=== PATIENT | male | born 1970 | race Caucasian/White ===

== ENCOUNTER → 2017-07-07 | Outpatient (CLI) | payer MEDICARE, OTHER ==
[~2017-07-07] MED LIST: CARV3.1212 PO; CELE50CA PO; DIAZ5TAB PO; LISI-167 PO; OMEP-110 PO; OXYC-302 PO; OXYC5CAP2 PO; OXYC5TAB2 PO; TRAM50TA2 PO; ZOLP-413 PO
== END | disposition home or self-care (01) ==
LOC: CFH 07:05
PROVIDERS: ATTEND Internal Medicine Cardiovascular Disease
DX: I35.8 Other nonrheumatic aortic valve disorders (principal); I37.1 Nonrheumatic pulmonary valve insufficiency; I42.0 Dilated cardiomyopathy; I51.7 Cardiomegaly; I72.8 Aneurysm of other specified arteries
CPT/HCPCS: 93306

== ENCOUNTER → 2017-11-30 | Outpatient (CLI) | payer OTHER ==
[~2017-11-30] MED LIST changes: +AMOX-291 PO; +CA C1CAP PO; +LISI2.5T PO; +MULT-658 PO; +MV-M1TAB16 PO; +OMEG-76 PO; +TRAZ150T62 PO
== END ==
LOC: STAR 15:45
PROVIDERS: ATTEND Orthopaedic Surgery Orthopaedic Surgery of the Spine
DX: Z01.818 Encounter for other preprocedural examination (principal); R00.1 Bradycardia, unspecified
CPT/HCPCS: 36415; 71046; 80053; 85025; 85610; 85651; 85730; 93005

== ENCOUNTER 2017-12-09 06:13 | Inpatient (IN) | payer OTHER ==
[2017-11-30 16:53] LABS: INTERNATIONAL NORMALIZED RATIO 1.01 (0.93-1.1); PROTHROMBIN TIME 10.5 Seconds (9.6-11.5)
[2017-11-30 16:54] LABS: BASOPHILS # (AUTO) 0.03 x10^3/uL (0-0.1); BASOPHILS % (AUTO) 1 % (0-1); EOSINOPHILS # (AUTO) 0.29 x10^3/uL (0-0.4); EOSINOPHILS % (AUTO) 7 % (1-7); LYMPHOCYTES # (AUTO) 1.62 x10^3/uL (1-3.4); LYMPHOCYTES % (AUTO) 36 % (22-44); MD NO; MEAN CORPUSCULAR HEMOGLOBIN 32.4 pg (27.5-34.5); MEAN CORPUSCULAR HGB CONC 34.6 g/dL (33.2-36.2); MEAN CORPUSCULAR VOLUME 93.7 fL (81-97); MONOCYTES # (AUTO) 0.34 x10^3/uL (0.2-0.8); MONOCYTES % (AUTO) 8 % (2-9); NEUTROPHILS % (AUTO) 49 % (42-75); PLATELET COUNT 162 x10^3/uL (130-400); RED BLOOD COUNT 4.71 x10^6/uL (4.38-5.82); RED CELL DISTRIBUTION WIDTH 12.7 % (9.4-14.8)
[2017-11-30 16:56] LABS: HCT (SEDRATE) 44.1 % (39.2-51.8)
[2017-11-30 16:58] LABS: ALANINE AMINOTRANSFERASE 22 U/L (12-78); ALBUMIN 3.9 g/dL (3.4-5.0); ANION GAP 9 mmol/L (5-15); CALCIUM 8.4 mg/dL (8.5-10.1); CHLORIDE 104 mmol/L (98-107); CREATININE 1.18 mg/dL (0.7-1.3)
[2017-11-30 17:00] LABS: ALKALINE PHOSPHATASE 57 U/L (45-117); BILIRUBIN,TOTAL 0.4 mg/dL (0.2-1.0); TOTAL PROTEIN 7.1 g/dL (6.4-8.2)
[~2017-12-09] VITALS: Ht 185.4 cm; Wt 92.4 kg
[2017-12-09] MEDS ORDERED: LACTATED RINGERS 1,000 ML IV SCH (07:14)
[2017-12-09] MEDS ORDERED: MIDAZOLAM 1 MG/ML, 2ML ONE (10:18)
[2017-12-09] MEDS ORDERED: FENTANYL PF 250 MCG/5ML ONE (10:18)
[2017-12-09] MEDS ORDERED: PROPOFOL 10 MG/ML, 20ML ONE (10:19)
[2017-12-09] MEDS ORDERED: ROCURONIUM 10 MG/ML,10ML ONE (10:19)
[2017-12-09] MEDS ORDERED: NEOSTIGMINE 1 MG/ML, 10ML ONE (10:20)
[2017-12-09] MEDS ORDERED: GLYCOPYRROLATE 0.4 MG/2 ML, 2ML ONE (10:20)
[2017-12-09] MEDS ORDERED: CEFAZOLIN 1,000 MG ONE ×2 (10:21)
[2017-12-09] MEDS ORDERED: SODIUM CHLORIDE 0.9% PF 10ML ONE (10:21)
[2017-12-09] MEDS ORDERED: BUPIVACAINE/PF 0.5% ONE (10:36)
[2017-12-09] MEDS ORDERED: EPINEPHRINE 1 MG/ML, 1ML ONE (10:36)
[2017-12-09] MEDS ORDERED: OXYcodone 5 MG/5 ML ORAL.SOL UDC PO PRN (11:00)
[2017-12-09] MEDS ORDERED: LABETALOL 5MG/ML, 20ML IV PRN (11:00)
[2017-12-09] MEDS ORDERED: FENTANYL PF 100 MCG/2ML IV PRN (11:00)
[2017-12-09] MEDS ORDERED: PROMETHAZINE 12.5 MG SUPP PR PRN (11:00)
[2017-12-09] MEDS ORDERED: ONDANSETRON 2MG/ML, 2ML IVPush PRN (11:00)
[2017-12-09] MEDS ORDERED: hydrALAzine 20 MG/ML, 1ML IV PRN (11:00)
[2017-12-09] MEDS ORDERED: ACETAMINOPHEN 325 MG TABLET PO PRN (11:00)
[2017-12-09] MEDS ORDERED: MEPERIDINE/PF 25MG/0.5ML IVPush PRN (11:00)
[2017-12-09] MEDS ORDERED: HYDROmorphone 2 MG/ML, 1ML ONE ×2 (12:10→12:26)
[2017-12-09] MEDS: HYDROmorphone 1 MG/ML, 1ML IV PRN ×6 (12:11→13:15)
[2017-12-09] MEDS ORDERED: ACETAMINOPHEN 650 MG/20.3 ML UDC ONE (12:26)
[2017-12-09] MEDS ORDERED: OXYcodone 5 MG/5 ML ORAL.SOL UDC ONE (12:27)
[2017-12-09] MEDS ORDERED: LORazepam 2 MG/ML, 1ML ONE (12:35)
[2017-12-09] MEDS ORDERED: LORazepam 2 MG/ML, 1ML IVPush PRN (13:00)
[2017-12-09 13:45] VITALS: BP 121/66
[2017-12-09 14:06] LABS: BASOPHILS # (AUTO) 0.02 x10^3/uL (0-0.1); BASOPHILS % (AUTO) 0 % (0-1); EOSINOPHILS # (AUTO) 0.17 x10^3/uL (0-0.4); EOSINOPHILS % (AUTO) 3 % (1-7); LYMPHOCYTES # (AUTO) 1.92 x10^3/uL (1-3.4); LYMPHOCYTES % (AUTO) 32 % (22-44); MD NO; MEAN CORPUSCULAR HEMOGLOBIN 32.5 pg (27.5-34.5); MEAN CORPUSCULAR HGB CONC 34.7 g/dL (33.2-36.2); MEAN CORPUSCULAR VOLUME 93.7 fL (81-97); MONOCYTES # (AUTO) 0.32 x10^3/uL (0.2-0.8); MONOCYTES % (AUTO) 5 % (2-9); NEUTROPHILS # (AUTO) 3.59 x10^3/uL (1.8-6.8); NEUTROPHILS % (AUTO) 60 % (42-75); PLATELET COUNT 146 x10^3/uL (130-400); RED BLOOD COUNT 4.76 x10^6/uL (4.38-5.82); RED CELL DISTRIBUTION WIDTH 12.6 % (9.4-14.8)
[2017-12-09] MEDS: LABETALOL 5MG/ML, 20ML IVPush SCH ×2 (14:21→22:16)
[2017-12-09] MEDS: POTASSIUM CHLORIDE 20 MEQ in D5%-0.45% NACL 1,000 ML IV SCH (14:28)
[2017-12-09] MEDS ORDERED: DIAZEPAM 5 MG TABLET PO PRN (14:30)
[2017-12-09] MEDS ORDERED: ACETAMINOPHEN 500 MG TABLET PO PRN (14:30)
[2017-12-09] MEDS ORDERED: DEXAMETHASONE 4 MG/ML, 1ML IV PRN (14:30)
[2017-12-09] MEDS ORDERED: SENNA/DOCUSATE TABLET PO PRN (14:30)
[2017-12-09] MEDS ORDERED: SODIUM CHLORIDE 0.9% 1,000ML IVBOLUS PRN (14:30)
[2017-12-09] MEDS ORDERED: LORazepam 2 MG/ML, 1ML IV PRN (14:30)
[2017-12-09] MEDS ORDERED: LORazepam 1MG TABLET PO PRN (14:30)
[2017-12-09] MEDS ORDERED: ONDANSETRON 2MG/ML, 2ML IV PRN (14:30)
[2017-12-09] MEDS ORDERED: KETOROLAC 30 MG/1 ML IM PRN (14:30)
[2017-12-09] MEDS ORDERED: OXYcodone ORAL.CONC 20 MG/ML PO PRN (14:30)
[2017-12-09] MEDS ORDERED: morphine SULFATE 10 MG/ML, 1ML IV PRN (14:30)
[2017-12-09] MEDS ORDERED: PROMETHAZINE 25 MG/ML, 1ML IM PRN (14:30)
[2017-12-09] MEDS ORDERED: ALUMINUM/MAG/SIMETHICONE 30 ML UDC PO PRN (14:30)
[2017-12-09] MEDS ORDERED: BISACODYL 10 MG SUPP PR PRN (14:30)
[2017-12-09] MEDS ORDERED: CARVEDILOL 6.25 MG TABLET ONE (17:45)
[2017-12-09 17:50] VITALS: BP 116/67
[2017-12-09] MEDS: CARVEDILOL 12.5 MG TABLET PO SCH (17:51)
[2017-12-09] MEDS ORDERED: CEFAZOLIN PMX 2GM/100ML 100 ML IVPB SCH (20:00)
[2017-12-09] MEDS: DOCUSATE 100 MG CAPSULE PO SCH (20:14)
[2017-12-09 20:15] VITALS: BP 129/84
[2017-12-09] MEDS ORDERED: ZOLPIDEM 5MG TABLET PO PRN (21:00)
[2017-12-09] MEDS: OXYcodone IR 5MG TABLET PO PRN (22:24)
[2017-12-10] MEDS: POTASSIUM CHLORIDE 20 MEQ in D5%-0.45% NACL 1,000 ML IV SCH ×3 (00:34→20:15)
[2017-12-10] MEDS: DIPHENHYDRAMINE 25 MG CAPSULE PO PRN (00:36)
[2017-12-10 00:38] VITALS: BP 114/85
[2017-12-10] MEDS ORDERED: CEFAZOLIN PMX 2GM/50ML 50 ML IVPB SCH (04:00)
[2017-12-10 04:30] VITALS: BP 102/64
[2017-12-10] MEDS: LABETALOL 5MG/ML, 20ML IVPush SCH ×3 (05:38→21:58)
[2017-12-10] MEDS ORDERED: CARVEDILOL 6.25 MG TABLET ONE (05:39)
[2017-12-10 05:41] LABS: BASOPHILS # (AUTO) 0.02 x10^3/uL (0-0.1); BASOPHILS % (AUTO) 0 % (0-1); EOSINOPHILS # (AUTO) 0.25 x10^3/uL (0-0.4); EOSINOPHILS % (AUTO) 4 % (1-7); LYMPHOCYTES # (AUTO) 1.36 x10^3/uL (1-3.4); LYMPHOCYTES % (AUTO) 24 % (22-44); MD NO; MEAN CORPUSCULAR HEMOGLOBIN 32.2 pg (27.5-34.5); MEAN CORPUSCULAR HGB CONC 34.2 g/dL (33.2-36.2); MEAN PLATELET VOLUME 10.5 fL (7.4-10.4); MONOCYTES # (AUTO) 0.38 x10^3/uL (0.2-0.8); MONOCYTES % (AUTO) 7 % (2-9); NEUTROPHILS % (AUTO) 65 % (42-75); PLATELET COUNT 136 x10^3/uL (130-400); RED CELL DISTRIBUTION WIDTH 12.7 % (9.4-14.8)
[2017-12-10] MEDS: CARVEDILOL 12.5 MG TABLET PO SCH ×2 (05:42→18:21)
[2017-12-10 05:51] LABS: HCT (SEDRATE) 44.2 % (39.2-51.8)
[2017-12-10 05:56] LABS: CALCIUM 8.7 mg/dL (8.5-10.1); CHLORIDE 106 mmol/L (98-107)
[2017-12-10 06:18] LABS: ALANINE AMINOTRANSFERASE 31 U/L (12-78); ALBUMIN 3.7 g/dL (3.4-5.0); ALKALINE PHOSPHATASE 51 U/L (45-117); ANION GAP 7 mmol/L (5-15); BILIRUBIN,TOTAL 0.7 mg/dL (0.2-1.0); C-REACTIVE PROTEIN, QUANT 0.14 mg/dL (0.02-0.49); TOTAL PROTEIN 6.5 g/dL (6.4-8.2)
[2017-12-10 08:11] VITALS: BP 126/74
[2017-12-10] MEDS: LISINOPRIL 5 MG TABLET PO SCH (08:14)
[2017-12-10] MEDS: MULTIVITAMINS WITH IRON TABLET PO SCH (08:14)
[2017-12-10] MEDS: DOCUSATE 100 MG CAPSULE PO SCH ×2 (08:15→21:33)
[2017-12-10] MEDS: OXYcodone IR 5MG TABLET PO PRN ×4 (08:15→21:33)
[2017-12-10] MEDS: CALCIUM/VITAMIN D3 250-125 TABLET PO SCH (08:19)
[2017-12-10] MEDS: OMEGA-3/FISH OIL CAPSULE PO SCH (08:19)
[2017-12-10] MEDS ORDERED: MULTIVITAMIN INTRINS/IRON CAPSULE PO SCH (09:00)
[2017-12-10] MEDS ORDERED: TRAZODONE 150MG TABLET PO SCH ×2 (09:00→21:00)
[2017-12-10 13:42] VITALS: BP 130/68
[2017-12-10] MEDS: CEFAZOLIN PMX 2GM/50ML 50 ML IV SCH (18:21)
[2017-12-10] MEDS: MAGNESIUM HYDROXIDE 8%, 30ML UDC PO PRN (18:21)
[2017-12-10 18:40] VITALS: BP 123/59
[2017-12-11 01:21] VITALS: BP 100/58
[2017-12-11] MEDS: CEFAZOLIN PMX 2GM/50ML 50 ML IV SCH (02:02)
[2017-12-11] MEDS: DIPHENHYDRAMINE 25 MG CAPSULE PO PRN (02:02)
[2017-12-11] MEDS: POTASSIUM CHLORIDE 20 MEQ in D5%-0.45% NACL 1,000 ML IV SCH (05:31)
[2017-12-11] MEDS: CARVEDILOL 12.5 MG TABLET PO SCH (05:37)
[2017-12-11] MEDS: OXYcodone IR 5MG TABLET PO PRN ×3 (05:42→14:46)
[2017-12-11] MEDS: LABETALOL 5MG/ML, 20ML IVPush SCH ×2 (06:30→14:42)
[2017-12-11 06:45] VITALS: BP 91/54
[2017-12-11] MEDS: LISINOPRIL 5 MG TABLET PO SCH (08:03)
[2017-12-11] MEDS ORDERED: CEPHALEXIN 500 MG CAPSULE PO SCH (09:00)
[2017-12-11] MEDS: MULTIVITAMINS WITH IRON TABLET PO SCH (09:08)
[2017-12-11] MEDS: OMEGA-3/FISH OIL CAPSULE PO SCH (09:09)
[2017-12-11] MEDS: CALCIUM/VITAMIN D3 250-125 TABLET PO SCH (09:09)
[2017-12-11] MEDS: MAGNESIUM HYDROXIDE 8%, 30ML UDC PO PRN (09:09)
[2017-12-11] MEDS: DOCUSATE 100 MG CAPSULE PO SCH (09:09)
[2017-12-11 12:58] VITALS: BP 101/59
[2017-12-11] MEDS ORDERED: CEPH-368 PO (14:35)
[2017-12-11 14:43] VITALS: BP 103/55
== END 2017-12-11 14:45 | disposition home or self-care (01) | DRG 464 ==
LOC: OR 06:13 → 4NOR 13:42 → OR 13:53 → 4NOR 13:53
PROVIDERS: ADMIT Orthopaedic Surgery Orthopaedic Surgery of the Spine; ATTEND Orthopaedic Surgery Orthopaedic Surgery of the Spine
PROC: 0SPA0JZ Removal of Synthetic Substitute from Right Hip Joint, Acetabular Surface, Open Approach (ICD-10-PCS; principal; 2017-12-09 09:00)
DX: T84.84XA Pain due to internal orthopedic prosthetic devices, implants and grafts, initial encounter (principal); M86.18 Other acute osteomyelitis, other site; I10 Essential (primary) hypertension; Q65.89 Other specified congenital deformities of hip; Y83.1 Surgical operation with implant of artificial internal device as the cause of abnormal reaction of the patient, or of later complication, without mention of misadventure at the time of the procedure
CPT/HCPCS: 36415; 71046; 76000; 80053; 85025; 85610; 85651; 85730; 86140; 87070; 87075; 87102; 87116; 87205; 87206; J0171; J0690; J1170; J2250; J2704; J2710; J3010; J3480; J3490; J2060; J7120; Q0163

== ENCOUNTER 2019-11-05 07:46 | Outpatient (CLI) | payer OTHER ==
[~2019-11-05 07:46] MED LIST changes: +CEPH-368 PO
== END 2019-11-05 23:59 | disposition home or self-care (01) ==
LOC: CFH 07:46
PROVIDERS: ATTEND Internal Medicine Cardiovascular Disease
DX: I08.8 Other rheumatic multiple valve diseases (principal); I42.0 Dilated cardiomyopathy
CPT/HCPCS: 93306

== ENCOUNTER → 2020-11-06 | Outpatient (CLI) | payer OTHER | END | disposition home or self-care (01) | LOC: CFH 09:46 | PROVIDERS: ATTEND Internal Medicine Cardiovascular Disease | DX: I37.1 Nonrheumatic pulmonary valve insufficiency (principal); I42.9 Cardiomyopathy, unspecified | CPT/HCPCS: 93306 ==

== ENCOUNTER 2020-12-05 12:50 | Outpatient (CLI) | payer OTHER ==
[~2020-12-05 12:50] MED LIST changes: -OXYC-302 PO; +OXYC1TAB14 PO
== END 2020-12-05 23:59 | disposition home or self-care (01) ==
LOC: CVU 12:50
PROVIDERS: ATTEND Internal Medicine Cardiovascular Disease
DX: I08.1 Rheumatic disorders of both mitral and tricuspid valves (principal); I42.9 Cardiomyopathy, unspecified
CPT/HCPCS: 93321; 93325; C8922; Q9957

== ENCOUNTER 2021-07-10 21:47 | Emergency (ER) | payer OTHER ==
[~2021-07-10] VITALS: Ht 185.4 cm; Wt 82.3 kg
[~2021-07-10 21:47] MED LIST changes: -LISI2.5T PO; +LISI2.5T12 PO; +OXYC1TAB12 PO; -OXYC1TAB14 PO
[2021-07-10 22:00] VITALS: BP 119/78
--- NOTE | 2021-07-10 22:32 | NUR ---
PT LEAVING AMA.
== END 2021-07-10 22:34 | disposition left against medical advice (07) ==
LOC: ED 22:00
DX: R10.9 Unspecified abdominal pain (principal)
CPT/HCPCS: 99281